=== PATIENT | male | born 1965 | race Caucasian/White ===

== ENCOUNTER 2023-04-26 10:23 | Inpatient (IN) | payer OTHER ==
[~2023-04-26] VITALS: Ht 170.2 cm; Wt 57.9 kg
[~2023-04-26 10:23] MED LIST: AMLO-258 PO; CHOL25TA4 PO; DIVA-85 PO; DOCU-385 PO; LEVE500T20 PO; PHEN100C10 PO; RANI150T7 PO; SERT-158 PO
[2023-04-26] MEDS ORDERED: 0.9% SODIUM CHLORIDE 10 ML SYRINGE IVP PRN (10:30)
[2023-04-26] MEDS ORDERED: BISA10SU11 PR (10:39)
[2023-04-26] MEDS ORDERED: NA P133E4 PR (10:39)
[2023-04-26] MEDS ORDERED: MAGN-169 PO (10:39)
[2023-04-26] MEDS ORDERED: MELA5TAB21 PO (10:39)
[2023-04-26] MEDS ORDERED: ATOR20TA PO (10:39)
[2023-04-26] MEDS ORDERED: GUAIFENESIN PO (10:39)
[2023-04-26] MEDS ORDERED: FAMO20 PO (10:39)
[2023-04-26] MEDS ORDERED: FOLI0.4T14 PO (10:39)
[2023-04-26] MEDS ORDERED: PHEN200C5 PO (10:39)
[2023-04-26] MEDS ORDERED: CALC-1009 PO (10:39)
[2023-04-26] MEDS ORDERED: VITAMIN B12 IM (10:39)
[2023-04-26] MEDS ORDERED: MIRT-89 PO (10:39)
[2023-04-26] MEDS ORDERED: LEVE250T4 PO (10:39)
[2023-04-26] MEDS ORDERED: ASPI81TA87 PO (10:39)
[2023-04-26 10:40] VITALS: PULSE 130; RESP 30; O2SAT 95
[2023-04-26] MEDS ORDERED: LevETIRAcetam 500 MG in DEXTROSE 5%-WATER 100 ML IV ONE (10:45)
[2023-04-26 11:00] LABS: BASOPHILS % (AUTO) 0.7 % (0.0-2.0); EOSINOPHILS % (AUTO) 0.1 % (1.0-6.0); HEMATOCRIT 43.8 % (41-53); HEMOGLOBIN 14.5 g/dL (13.5-17.5); LYMPHOCYTES # (AUTO) 1.4 K/uL (1.0-4.8); LYMPHOCYTES % (AUTO) 11.6 % (22.0-44.0); MEAN CORPUSCULAR HEMOGLOBIN 30.5 pg (26.0-34.0); MEAN CORPUSCULAR HGB CONC 33.1 G/dL (31.0-37.0); MEAN CORPUSCULAR VOLUME 92 fL (80-100); MONOCYTES % (AUTO) 7.9 % (2.0-9.0); NEUTROPHILS # (AUTO) 9.8 K/uL (1.8-7.7); NEUTROPHILS % (AUTO) 79.7 % (40.0-70.0); PLATELET COUNT (AUTO) 299 K/uL (150-450); RED BLOOD CELL COUNT(AUTO) 4.76 MIL/uL (4.50-5.90); RED CELL DISTRIBUTION WIDTH 13.2 % (11.5-14.5); WHITE BLOOD COUNT (AUTO) 12.3 K/uL (4.5-11.0)
[2023-04-26 11:00] LABS: COVID AG,FIA SOURCE NASAL SWAB
[2023-04-26 11:07] LABS: APPEARANCE,URINE CLEAR (CLEAR); BILIRUBIN,URINE NEGATIVE (NEGATIVE); COLOR,URINE LIGHT YELLOW (YELLOW); GLUCOSE, URINE (UA) 70-100 mg/dL (NEGATIVE); LEUKOCYTE ESTERASE ,URINE NEGATIVE (NEGATIVE); NITRATE,URINE NEGATIVE (NEGATIVE); OCCULT BLOOD,URINE SMALL (NEGATIVE); PH,URINE 5.5 (5.0-8.0); PROTEIN,URINE 100-200,SEE CONFIRM mg/dL (NEGATIVE); SPECIFIC GRAVITIY, URINE 1.018 (1.003-1.030); UROBILINOGEN,URINE <=1.0 mg/dL (<=1.0)
[2023-04-26 11:09] LABS: ANION GAP 26 mmol/L (8-16); CALCIUM, TOTAL 8.7 mg/dL (8.8-10.5); CARBON DIOXIDE 13 mmol/L (22-29); CHLORIDE 89 mmol/L (98-107); CREATININE 1.71 mg/dL (0.60-1.30); GLOMERULAR FILTR. RATE CALC 41 mL/min (>60); GLUCOSE,RANDOM 244 mg/dL (70-110); POTASSIUM 3.1 mmol/L (3.5-5.1); SODIUM SERUM 128 mmol/L (136-145); UREA NITROGEN, BLOOD 18 mg/dL (7-18)
[2023-04-26 11:15] LABS: INR 1.1 (0.9-1.1); PROTHROMBIN TIME 11.3 SEC (9.4-11.6)
[2023-04-26 11:20] LABS: TROPONIN I-HIGH SENSITIVITY 34 ng/L (<76)
[2023-04-26 11:22] LABS: LACTIC ACID 14.2 mmol/L (0.4-2.0)
[2023-04-26 11:24] LABS: SARS-COV2 (COVID) ANTIGEN,FIA Negative (Negative)
[2023-04-26 11:25] LABS: SULFOSALICYLIC ACID,URINE 2+ (Negative)
[2023-04-26 11:25] LABS: INFLUENZA TYPE A NEGATIVE FOR TYPE A (NEGATIVE); INFLUENZA TYPE B NEGATIVE FOR TYPE B (NEGATIVE)
[2023-04-26 11:26] LABS: BACTERIA,URINE None Seen /HPF (None Seen); HYALINE CASTS, URINE 0-2 /LPF (None Seen); WBC,URINE None Seen /HPF (0-5)
[2023-04-26 11:27] LABS: ALBUMIN 3.7 g/dL (3.4-5.0); ALKALINE PHOSPHATASE 150 U/L (46-116); BILIRUBIN,TOTAL 0.3 mg/dL (0.1-1.0); TOTAL PROTEIN, SERUM 7.9 g/dL (6.4-8.2)
[2023-04-26] MEDS ORDERED: PIPERACILLIN/TAZO 3.375 GM/D5W 50 ML IV ONE (11:30)
[2023-04-26] MEDS ORDERED: SODIUM CHLORIDE 0.9% 1,900 ML IV ONE (11:30)
[2023-04-26] MEDS ORDERED: ACETAMINOPHEN 500 MG TABLET PO ONE (12:15)
[2023-04-26 12:21] LABS: D-DIMER 1.82 mg/L FEU (0.00-0.50); FIBRINOGEN 276 mg/dL (200-400)
[2023-04-26] MEDS ORDERED: ONDANSETRON HCL 4 MG/2 ML VIAL IVP PRN (12:30)
[2023-04-26] MEDS ORDERED: SODIUM CHLORIDE 0.9% 1,000 ML IV ONE (12:30)
[2023-04-26] MEDS ORDERED: ACETAMINOPHEN 325 MG TABLET PO PRN (12:30)
[2023-04-26] MEDS ORDERED: LORazepam 2 MG/ML VIAL IVP PRN (12:30)
[2023-04-26] MEDS ORDERED: BISACODYL 10 MG RECTAL RECTAL SUPPOSITORY PR PRN (12:30)
[2023-04-26] MEDS ORDERED: DEXTROSE 50%-WATER 25 GM/50 ML SYRINGE IVP PRN (12:30)
[2023-04-26 12:36] LABS: ASPARTATE AMINOTRANSFERASE 30 U/L (15-37)
[2023-04-26 12:48] LABS: ALANINE AMINOTRANSFERASE 15 U/L (12-78)
[2023-04-26 12:57] LABS: PHENYTOIN (DILANTIN) 4.9 mcg/mL (10.0-20.0)
[2023-04-26] MEDS ORDERED: VANCOMYCIN HCL 1.25 GM in DEXTROSE 5%-WATER 250 ML IV ONE (13:00)
[2023-04-26 13:08] LABS: FIBRIN SPLIT PRODUCTS GT >10 but LT <40 mcg/mL (<10)
[2023-04-26] MEDS ORDERED: LORazepam 2 MG/ML VIAL IVP ONE (13:30)
[2023-04-26] MEDS: HEPARIN SODIUM,PORCINE 5,000 UNITS/ML VIAL SQ SCH ×2 (15:57→23:05)
[2023-04-26] MEDS: PIPERACILLIN/TAZO 3.375 GM/D5W 50 ML IV SCH ×2 (17:24→23:40)
[2023-04-26 21:10] VITALS: BP 116/87; PULSE 91; RESP 20; TEMP 98.1
[2023-04-26] MEDS: LevETIRAcetam 750 MG in DEXTROSE 5%-WATER 100 ML IV SCH (23:04)
[2023-04-26] MEDS ORDERED: SODIUM CHLORIDE 0.9% 500 ML IV ONE (23:05)
[2023-04-26 23:23] VITALS: BP 118/81; PULSE 86; RESP 18; TEMP 99
[2023-04-27] MEDS ORDERED: POTASSIUM CHL 10 MEQ/WATER 50 ML IV PRN (01:15)
[2023-04-27 01:16] LABS: GLUCOMETER DEV NAME(LOC) 5N.1C; GLUCOSE,POINT OF CARE 88 MG/DL (70-110)
[2023-04-27] MEDS: POTASSIUM CHLORIDE 20 MEQ ER TABLET PO PRN (01:18)
[2023-04-27 05:05] VITALS: BP 101/78; PULSE 87; RESP 19; TEMP 98
[2023-04-27] MEDS: PIPERACILLIN/TAZO 3.375 GM/D5W 50 ML IV SCH ×4 (05:31→23:33)
[2023-04-27] MEDS ORDERED: VANCOMYCIN HCL 1.25 GM in DEXTROSE 5%-WATER 250 ML IV SCH (08:00)
[2023-04-27 08:29] LABS: ANION GAP 9 mmol/L (8-16); CALCIUM, TOTAL 7.8 mg/dL (8.8-10.5); CARBON DIOXIDE 26 mmol/L (22-29); CHLORIDE 98 mmol/L (98-107); CREATININE 0.84 mg/dL (0.60-1.30); GLOMERULAR FILTR. RATE CALC > 60 mL/min (>60); GLUCOSE,RANDOM 80 mg/dL (70-110); POTASSIUM 4.4 mmol/L (3.5-5.1); SODIUM SERUM 133 mmol/L (136-145); UREA NITROGEN, BLOOD 11 mg/dL (7-18)
[2023-04-27 08:51] LABS: GLUCOMETER DEV NAME(LOC) 5N.2C; GLUCOSE,POINT OF CARE 87 MG/DL (70-110)
[2023-04-27 09:20] VITALS: BP 104/77; PULSE 89; RESP 20; TEMP 98.3
[2023-04-27] MEDS: PANTOPRAZOLE SODIUM 40 MG/VIAL IVP SCH (09:43)
[2023-04-27] MEDS: HEPARIN SODIUM,PORCINE 5,000 UNITS/ML VIAL SQ SCH ×3 (09:43→23:33)
[2023-04-27] MEDS: LevETIRAcetam 750 MG in DEXTROSE 5%-WATER 100 ML IV SCH ×2 (11:26→23:19)
[2023-04-27 12:59] VITALS: BP 119/81; PULSE 88; RESP 20; TEMP 98.6
[2023-04-27] MEDS ORDERED: DEXAMETHASONE 4 MG TABLET PO SCH (15:00)
[2023-04-27] MEDS ORDERED: REMDESIVIR 200 MG in SODIUM CHLORIDE 0.9% 250 ML IV ONE (15:00)
[2023-04-27 16:46] VITALS: BP 103/69; PULSE 79; RESP 20; TEMP 98.6
[2023-04-27] MEDS: VANCOMYCIN 1GM/WATER(PEG/NADA) 200 ML IV SCH (19:48)
[2023-04-27 20:08] VITALS: BP 110/74; PULSE 110; RESP 16; TEMP 99
[2023-04-27 20:21] LABS: GLUCOMETER DEV NAME(LOC) 5S.2C; GLUCOSE,POINT OF CARE 118 MG/DL (70-110)
[2023-04-27 20:21] LABS: GLUCOMETER DEV NAME(LOC) 5S.2C; GLUCOSE,POINT OF CARE 125 MG/DL (70-110)
[2023-04-27 23:42] VITALS: BP 105/73; PULSE 86; RESP 18; TEMP 98.7
[2023-04-27 23:51] LABS: GLUCOMETER DEV NAME(LOC) 5N.1C; GLUCOSE,POINT OF CARE 96 MG/DL (70-110)
[2023-04-28 04:00] VITALS: BP 109/72; PULSE 86; RESP 18; TEMP 98.5
[2023-04-28] MEDS: PIPERACILLIN/TAZO 3.375 GM/D5W 50 ML IV SCH ×3 (05:27→17:04)
[2023-04-28 07:01] LABS: ALANINE AMINOTRANSFERASE 12 U/L (12-78); ALKALINE PHOSPHATASE 109 U/L (46-116); ANION GAP 7 mmol/L (8-16); ASPARTATE AMINOTRANSFERASE 18 U/L (15-37); BILIRUBIN,TOTAL 0.3 mg/dL (0.1-1.0); CALCIUM, TOTAL 8.5 mg/dL (8.8-10.5); CARBON DIOXIDE 25 mmol/L (22-29); CHLORIDE 102 mmol/L (98-107); CREATININE 0.73 mg/dL (0.60-1.30); FERRITIN 126 ng/mL (26-388); GLOMERULAR FILTR. RATE CALC > 60 mL/min (>60); GLUCOSE,RANDOM 91 mg/dL (70-110); POTASSIUM 3.2 mmol/L (3.5-5.1); SODIUM SERUM 134 mmol/L (136-145); TOTAL PROTEIN, SERUM 6.3 g/dL (6.4-8.2); UREA NITROGEN, BLOOD 7 mg/dL (7-18)
[2023-04-28 07:35] VITALS: BP 94/55; PULSE 81; RESP 20; TEMP 97.4
[2023-04-28] MEDS: PANTOPRAZOLE SODIUM 40 MG/VIAL IVP SCH (09:17)
[2023-04-28] MEDS: HEPARIN SODIUM,PORCINE 5,000 UNITS/ML VIAL SQ SCH ×2 (09:17→16:33)
[2023-04-28] MEDS: VANCOMYCIN 1GM/WATER(PEG/NADA) 200 ML IV SCH ×3 (09:17→20:30)
[2023-04-28] MEDS: POTASSIUM CHLORIDE 20 MEQ ER TABLET PO PRN (09:19)
[2023-04-28] MEDS: DEXAMETHASONE 2 MG TABLET PO SCH (09:19)
[2023-04-28] MEDS: LevETIRAcetam 750 MG in DEXTROSE 5%-WATER 100 ML IV SCH (11:22)
[2023-04-28 11:44] VITALS: BP 103/69; PULSE 77; RESP 18; TEMP 98.7
[2023-04-28] MEDS ORDERED: CYAN-11 IM (11:48)
[2023-04-28] MEDS ORDERED: PHEN100C10 PO (11:48)
[2023-04-28] MEDS ORDERED: GUAI100S13 PO (11:48)
[2023-04-28] MEDS: PHENYTOIN 100 MG/4 ML SUSPENSION UDCUP PO SCH ×2 (12:06→20:30)
[2023-04-28 12:26] LABS: GLUCOMETER DEV NAME(LOC) 5N.2C; GLUCOSE,POINT OF CARE 130 MG/DL (70-110)
[2023-04-28 12:26] LABS: GLUCOMETER DEV NAME(LOC) 5N.2C; GLUCOSE,POINT OF CARE 92 MG/DL (70-110)
[2023-04-28] MEDS: REMDESIVIR 100 MG in SODIUM CHLORIDE 0.9% 250 ML IV SCH (15:09)
[2023-04-28 15:20] VITALS: BP 98/64; PULSE 68; RESP 18; TEMP 98.6
[2023-04-28 20:47] VITALS: BP 120/71; PULSE 80; RESP 16; TEMP 98.4
[2023-04-28 21:11] LABS: GLUCOMETER DEV NAME(LOC) 5S.2C; GLUCOSE,POINT OF CARE 143 MG/DL (70-110)
[2023-04-28 21:11] LABS: GLUCOMETER DEV NAME(LOC) 5S.2C; GLUCOSE,POINT OF CARE 157 MG/DL (70-110)
[2023-04-29] MEDS: LevETIRAcetam 750 MG in DEXTROSE 5%-WATER 100 ML IV SCH ×2 (00:24→11:16)
[2023-04-29] MEDS: PIPERACILLIN/TAZO 3.375 GM/D5W 50 ML IV SCH ×4 (00:24→17:11)
[2023-04-29] MEDS: HEPARIN SODIUM,PORCINE 5,000 UNITS/ML VIAL SQ SCH ×3 (00:25→15:05)
[2023-04-29] MEDS ORDERED: SODIUM CHLORIDE 0.9% 500 ML IV ONE (01:01)
[2023-04-29 01:14] VITALS: BP 118/81; PULSE 84; RESP 18; TEMP 98.5
[2023-04-29 05:19] VITALS: BP 103/86; PULSE 70; RESP 20; TEMP 98.1
[2023-04-29] MEDS: PHENYTOIN 100 MG/4 ML SUSPENSION UDCUP PO SCH ×2 (08:10→21:25)
[2023-04-29] MEDS: DEXAMETHASONE 2 MG TABLET PO SCH (08:10)
[2023-04-29] MEDS: VANCOMYCIN 1GM/WATER(PEG/NADA) 200 ML IV SCH ×2 (08:10→21:24)
[2023-04-29] MEDS: PANTOPRAZOLE SODIUM 40 MG/VIAL IVP SCH (08:10)
[2023-04-29 08:25] VITALS: BP 106/71; PULSE 69; RESP 18; TEMP 97.7
[2023-04-29 10:10] LABS: ALANINE AMINOTRANSFERASE 11 U/L (12-78); ALBUMIN 2.7 g/dL (3.4-5.0); ALKALINE PHOSPHATASE 97 U/L (46-116); ANION GAP 7 mmol/L (8-16); ASPARTATE AMINOTRANSFERASE 14 U/L (15-37); BILIRUBIN,TOTAL 0.2 mg/dL (0.1-1.0); CALCIUM, TOTAL 8.2 mg/dL (8.8-10.5); CARBON DIOXIDE 25 mmol/L (22-29); CHLORIDE 105 mmol/L (98-107); CREATININE 0.75 mg/dL (0.60-1.30); GLOMERULAR FILTR. RATE CALC > 60 mL/min (>60); GLUCOSE,RANDOM 111 mg/dL (70-110); POTASSIUM 3.2 mmol/L (3.5-5.1); SODIUM SERUM 137 mmol/L (136-145); TOTAL PROTEIN, SERUM 5.9 g/dL (6.4-8.2); UREA NITROGEN, BLOOD 3 mg/dL (7-18); VANCOMYCIN,RANDOM 32.4 mcg/mL (25.0-50.0)
[2023-04-29] MEDS: POTASSIUM CHLORIDE 20 MEQ ER TABLET PO PRN (11:14)
[2023-04-29 11:51] LABS: GLUCOMETER DEV NAME(LOC) 5N.2C; GLUCOSE,POINT OF CARE 109 MG/DL (70-110)
[2023-04-29 13:41] VITALS: BP 98/60; PULSE 76; RESP 18; TEMP 98.4
[2023-04-29] MEDS: REMDESIVIR 100 MG in SODIUM CHLORIDE 0.9% 250 ML IV SCH (15:05)
[2023-04-29 20:01] LABS: GLUCOMETER DEV NAME(LOC) 5S.1B; GLUCOSE,POINT OF CARE 121 MG/DL (70-110)
[2023-04-29 20:01] LABS: GLUCOMETER DEV NAME(LOC) 5S.2C; GLUCOSE,POINT OF CARE 124 MG/DL (70-110)
[2023-04-29 21:15] VITALS: BP 106/69; PULSE 77; RESP 19; TEMP 98.7
[2023-04-30] VITALS (7 sets, daily range): BP systolic 77–112; BP diastolic 50–75; PULSE 57–71; RESP 18–19; TEMP 97.9–98.2
[2023-04-30] MEDS: LevETIRAcetam 750 MG in DEXTROSE 5%-WATER 100 ML IV SCH ×3 (00:03→22:56)
[2023-04-30] MEDS: HEPARIN SODIUM,PORCINE 5,000 UNITS/ML VIAL SQ SCH ×4 (00:04→23:45)
[2023-04-30] MEDS: PIPERACILLIN/TAZO 3.375 GM/D5W 50 ML IV SCH ×5 (00:07→23:45)
[2023-04-30 07:58] LABS: ALANINE AMINOTRANSFERASE 13 U/L (12-78); ALKALINE PHOSPHATASE 104 U/L (46-116); ANION GAP 7 mmol/L (8-16); ASPARTATE AMINOTRANSFERASE 16 U/L (15-37); BILIRUBIN,TOTAL 0.2 mg/dL (0.1-1.0); CALCIUM, TOTAL 8.6 mg/dL (8.8-10.5); CARBON DIOXIDE 27 mmol/L (22-29); CHLORIDE 106 mmol/L (98-107); CREATININE 0.69 mg/dL (0.60-1.30); GLOMERULAR FILTR. RATE CALC > 60 mL/min (>60); GLUCOSE,RANDOM 79 mg/dL (70-110); POTASSIUM 4.7 mmol/L (3.5-5.1); SODIUM SERUM 140 mmol/L (136-145); TOTAL PROTEIN, SERUM 6.5 g/dL (6.4-8.2); UREA NITROGEN, BLOOD 4 mg/dL (7-18)
[2023-04-30] MEDS ORDERED: SODIUM CHLORIDE 0.9% 1,000 ML IV ONE (08:00)
[2023-04-30] MEDS: DEXAMETHASONE 2 MG TABLET PO SCH (08:04)
[2023-04-30] MEDS: VANCOMYCIN 1GM/WATER(PEG/NADA) 200 ML IV SCH (08:04)
[2023-04-30] MEDS: PHENYTOIN 100 MG/4 ML SUSPENSION UDCUP PO SCH ×2 (08:04→20:02)
[2023-04-30] MEDS: PANTOPRAZOLE SODIUM 40 MG/VIAL IVP SCH (08:05)
[2023-04-30 08:31] LABS: GLUCOMETER DEV NAME(LOC) 5N.1C; GLUCOSE,POINT OF CARE 121 MG/DL (70-110)
[2023-04-30 08:31] LABS: GLUCOMETER DEV NAME(LOC) 5N.2C; GLUCOSE,POINT OF CARE 85 MG/DL (70-110)
[2023-04-30 10:20] LABS: HEMOGLOBIN 10.9 g/dL (13.5-17.5); LYMPHOCYTES # (AUTO) 2.8 K/uL (1.0-4.8); MEAN CORPUSCULAR HGB CONC 32.2 G/dL (31.0-37.0); MEAN CORPUSCULAR VOLUME 93 fL (80-100); MONOCYTES # (AUTO) 0.8 K/uL (0.1-1.0); MONOCYTES % (AUTO) 8.2 % (2.0-9.0); NEUTROPHILS # (AUTO) 5.4 K/uL (1.8-7.7); NEUTROPHILS % (AUTO) 57.8 % (40.0-70.0); PLATELET COUNT (AUTO) 247 K/uL (150-450); RED BLOOD CELL COUNT(AUTO) 3.65 MIL/uL (4.50-5.90); RED CELL DISTRIBUTION WIDTH 13.5 % (11.5-14.5); WHITE BLOOD COUNT (AUTO) 9.3 K/uL (4.5-11.0)
[2023-04-30] MEDS: REMDESIVIR 100 MG in SODIUM CHLORIDE 0.9% 250 ML IV SCH (15:24)
[2023-04-30] MEDS: VANCOMYCIN HCL 750 MG in DEXTROSE 5%-WATER 250 ML IV SCH (16:48)
[2023-04-30] MEDS: INSULIN LISPRO 100 UNITS/ML SQ PRN (20:08)
[2023-04-30 20:16] LABS: GLUCOMETER DEV NAME(LOC) 5S.2C; GLUCOSE,POINT OF CARE 113 MG/DL (70-110)
[2023-04-30 20:16] LABS: GLUCOMETER DEV NAME(LOC) 5N.2C; GLUCOSE,POINT OF CARE 115 MG/DL (70-110)
[2023-04-30 21:27] LABS: GLUCOMETER DEV NAME(LOC) 5N.1C; GLUCOSE,POINT OF CARE 142 MG/DL (70-110)
[2023-05-01] VITALS (7 sets, daily range): BP systolic 86–130; BP diastolic 56–91; PULSE 62–76; RESP 18–20; TEMP 97.2–98.4
[2023-05-01] MEDS: VANCOMYCIN HCL 750 MG in DEXTROSE 5%-WATER 250 ML IV SCH ×3 (00:31→16:39)
[2023-05-01] MEDS: PIPERACILLIN/TAZO 3.375 GM/D5W 50 ML IV SCH ×4 (05:04→23:41)
[2023-05-01 07:11] LABS: ALBUMIN 2.9 g/dL (3.4-5.0); ANION GAP 17 mmol/L (8-16); CALCIUM, TOTAL 8.9 mg/dL (8.8-10.5); CARBON DIOXIDE 26 mmol/L (22-29); CHLORIDE 103 mmol/L (98-107); CREATININE 0.72 mg/dL (0.60-1.30); GLOMERULAR FILTR. RATE CALC > 60 mL/min (>60); GLUCOSE,RANDOM 92 mg/dL (70-110); PHENYTOIN (DILANTIN) 13.6 mcg/mL (10.0-20.0); POTASSIUM 4.7 mmol/L (3.5-5.1); SODIUM SERUM 146 mmol/L (136-145); UREA NITROGEN, BLOOD 5 mg/dL (7-18)
[2023-05-01 07:25] LABS: ALANINE AMINOTRANSFERASE 18 U/L (12-78); ALKALINE PHOSPHATASE 100 U/L (46-116); ASPARTATE AMINOTRANSFERASE 21 U/L (15-37); BILIRUBIN,TOTAL 0.1 mg/dL (0.1-1.0); TOTAL PROTEIN, SERUM 6.5 g/dL (6.4-8.2)
[2023-05-01 07:36] LABS: GLUCOMETER DEV NAME(LOC) 5N.2C; GLUCOSE,POINT OF CARE 93 MG/DL (70-110)
[2023-05-01] MEDS: HEPARIN SODIUM,PORCINE 5,000 UNITS/ML VIAL SQ SCH ×3 (09:01→23:17)
[2023-05-01] MEDS: PANTOPRAZOLE SODIUM 40 MG/VIAL IVP SCH (09:01)
[2023-05-01] MEDS: PHENYTOIN 100 MG/4 ML SUSPENSION UDCUP PO SCH ×2 (09:04→20:44)
[2023-05-01] MEDS: DEXAMETHASONE 2 MG TABLET PO SCH (09:04)
[2023-05-01] MEDS: LevETIRAcetam 750 MG in DEXTROSE 5%-WATER 100 ML IV SCH ×2 (11:26→23:11)
[2023-05-01] MEDS: INSULIN LISPRO 100 UNITS/ML SQ PRN ×2 (12:01→18:20)
[2023-05-01] MEDS: REMDESIVIR 100 MG in SODIUM CHLORIDE 0.9% 250 ML IV SCH (15:07)
[2023-05-01 15:41] LABS: GLUCOMETER DEV NAME(LOC) 5S.2C; GLUCOSE,POINT OF CARE 142 MG/DL (70-110)
[2023-05-02] VITALS (7 sets, daily range): BP systolic 93–110; BP diastolic 57–76; PULSE 59–76; RESP 16–20; TEMP 97.6–98.5
[2023-05-02] MEDS: VANCOMYCIN HCL 750 MG in DEXTROSE 5%-WATER 250 ML IV SCH (00:19)
[2023-05-02] MEDS: PIPERACILLIN/TAZO 3.375 GM/D5W 50 ML IV SCH ×3 (05:51→17:49)
[2023-05-02 06:26] LABS: GLUCOMETER DEV NAME(LOC) 5S.1B; GLUCOSE,POINT OF CARE 125 MG/DL (70-110)
[2023-05-02 07:23] LABS: ANION GAP 9 mmol/L (8-16); CARBON DIOXIDE 27 mmol/L (22-29); CHLORIDE 104 mmol/L (98-107); CREATININE 0.69 mg/dL (0.60-1.30); GLOMERULAR FILTR. RATE CALC > 60 mL/min (>60); GLUCOSE,RANDOM 70 mg/dL (70-110); POTASSIUM 4.2 mmol/L (3.5-5.1); SODIUM SERUM 140 mmol/L (136-145); UREA NITROGEN, BLOOD 6 mg/dL (7-18); VANCOMYCIN,RANDOM 30.7 mcg/mL (25.0-50.0)
[2023-05-02] MEDS: PANTOPRAZOLE SODIUM 40 MG/VIAL IVP SCH (08:09)
[2023-05-02] MEDS: DEXAMETHASONE 2 MG TABLET PO SCH (08:09)
[2023-05-02] MEDS: PHENYTOIN 100 MG/4 ML SUSPENSION UDCUP PO SCH ×2 (08:09→20:07)
[2023-05-02] MEDS: HEPARIN SODIUM,PORCINE 5,000 UNITS/ML VIAL SQ SCH ×2 (08:09→16:50)
[2023-05-02] MEDS: LevETIRAcetam 750 MG in DEXTROSE 5%-WATER 100 ML IV SCH ×2 (11:33→23:11)
[2023-05-02] MEDS ORDERED: VANCOMYCIN HCL 500 MG in DEXTROSE 5%-WATER 100 ML IV SCH (16:00)
[2023-05-02 17:26] LABS: GLUCOMETER DEV NAME(LOC) 5N.2C; GLUCOSE,POINT OF CARE 88 MG/DL (70-110)
[2023-05-02 17:26] LABS: GLUCOMETER DEV NAME(LOC) 5N.2C; GLUCOSE,POINT OF CARE 130 MG/DL (70-110)
[2023-05-02 21:51] LABS: GLUCOMETER DEV NAME(LOC) 5N.1C; GLUCOSE,POINT OF CARE 116 MG/DL (70-110)
[2023-05-02 21:51] LABS: GLUCOMETER DEV NAME(LOC) 5S.1B; GLUCOSE,POINT OF CARE 123 MG/DL (70-110)
[2023-05-03] MEDS: PIPERACILLIN/TAZO 3.375 GM/D5W 50 ML IV SCH ×4 (00:06→18:47)
[2023-05-03] MEDS: HEPARIN SODIUM,PORCINE 5,000 UNITS/ML VIAL SQ SCH ×3 (00:07→17:44)
[2023-05-03 00:19] VITALS: BP 107/74; PULSE 68; RESP 16; TEMP 97.8
[2023-05-03 05:19] VITALS: BP 106/59; PULSE 63; RESP 18; TEMP 97.9
[2023-05-03 06:07] LABS: GLUCOMETER DEV NAME(LOC) 5N.2C; GLUCOSE,POINT OF CARE 87 MG/DL (70-110)
[2023-05-03 06:58] LABS: ANION GAP 7 mmol/L (8-16); CALCIUM, TOTAL 9.5 mg/dL (8.8-10.5); CARBON DIOXIDE 30 mmol/L (22-29); CHLORIDE 103 mmol/L (98-107); CREATININE 0.87 mg/dL (0.60-1.30); GLOMERULAR FILTR. RATE CALC > 60 mL/min (>60); GLUCOSE,RANDOM 82 mg/dL (70-110); POTASSIUM 5.7 mmol/L (3.5-5.1); SODIUM SERUM 139 mmol/L (136-145); UREA NITROGEN, BLOOD 9 mg/dL (7-18)
[2023-05-03 08:32] VITALS: BP 120/70; PULSE 59; RESP 18; TEMP 98
[2023-05-03] MEDS: PHENYTOIN 100 MG/4 ML SUSPENSION UDCUP PO SCH (08:41)
[2023-05-03] MEDS: PANTOPRAZOLE SODIUM 40 MG/VIAL IVP SCH (08:41)
[2023-05-03] MEDS: LevETIRAcetam 750 MG in DEXTROSE 5%-WATER 100 ML IV SCH (11:29)
[2023-05-03 11:36] LABS: GLUCOMETER DEV NAME(LOC) 5S.2C; GLUCOSE,POINT OF CARE 157 MG/DL (70-110)
[2023-05-03 12:00] VITALS: BP 118/68; PULSE 60; RESP 18; TEMP 98
[2023-05-03] MEDS ORDERED: SODIUM POLYSTYRENE SULFONATE 15 GM/60 ML SUSPENSION BOTTLE PO ONE (14:15)
[2023-05-03 15:39] VITALS: BP 113/72; PULSE 76; RESP 20; TEMP 98
[2023-05-03 21:09] VITALS: BP 110/74; PULSE 64; RESP 18; TEMP 98.2
== END 2023-05-03 20:30 | DRG 720 ==
LOC: EMS 10:43 → 5S 19:00
PROVIDERS: ADMIT Internal Medicine; ATTEND Internal Medicine
PROC: 5A0935A Assistance with Respiratory Ventilation, Less than 24 Consecutive Hours, High Flow/Velocity Cannula (ICD-10-PCS; principal; 2023-04-26)
PROC: XW033E5 Introduction of Remdesivir Anti-infective into Peripheral Vein, Percutaneous Approach, New Technology Group 5 (ICD-10-PCS; 2023-04-27)
DX: A41.9 Sepsis, unspecified organism (principal); J96.91 Respiratory failure, unspecified with hypoxia; J12.82 Pneumonia due to coronavirus disease 2019; J69.0 Pneumonitis due to inhalation of food and vomit; G92.9 Unspecified toxic encephalopathy; U07.1 COVID-19; N17.9 Acute kidney failure, unspecified; R53.2 Functional quadriplegia; I95.9 Hypotension, unspecified; E87.1 Hypo-osmolality and hyponatremia; E11.9 Type 2 diabetes mellitus without complications; G40.909 Epilepsy, unspecified, not intractable, without status epilepticus; F01.50 Vascular dementia, unspecified severity, without behavioral disturbance, psychotic disturbance, mood disturbance, and anxiety; I10 Essential (primary) hypertension; F32.A Depression, unspecified; K21.9 Gastro-esophageal reflux disease without esophagitis; J98.11 Atelectasis; E87.5 Hyperkalemia; Z79.4 Long term (current) use of insulin; I69.351 Hemiplegia and hemiparesis following cerebral infarction affecting right dominant side; Z79.82 Long term (current) use of aspirin; Z79.899 Other long term (current) drug therapy
CPT/HCPCS: 70450; 71045; 71250; 80048; 80053; 80185; 80202; 81001; 81002; 82728; 82962; 83605; 84132; 84145; 84484; 85025; 85362; 85379; 85384; 85610; 86140; 87040; 87081; 87804; 92523; 92610; 93005; 93970; 99285; C9113; J0712; J1644; J2060; J2543; J3370; J7030; J7040; J7050; J7060; J8540; Q9967; 36415-L1; 36415-TC

== ENCOUNTER 2024-05-06 18:34 | Emergency (ER) | payer OTHER ==
[~2024-05-06] VITALS: Ht 182.9 cm; Wt 70.5 kg
[~2024-05-06 18:34] MED LIST changes: -AMLO-258 PO; +ASPI81TA87 PO; +ATOR20TA PO; +BISA10SU11 PR; +CALC-1009 PO; -CHOL25TA4 PO; +CYAN-11 IM; -DIVA-85 PO; -DOCU-385 PO; +FAMO20 PO; +FOLI0.4T14 PO; +GUAI100S13 PO; +LEVE250T81 PO; -LEVE500T20 PO; +MAGN-169 PO; +MELA5TAB21 PO; +MIRT-89 PO; +NA P133E4 PR; -RANI150T7 PO; -SERT-158 PO
[2024-05-06 19:19] VITALS: TEMP 98.4
[2024-05-06] MEDS ORDERED: LIPOFLAVONOID PO (19:32)
[2024-05-06] MEDS ORDERED: EZET10TA57 PO (19:32)
[2024-05-06] MEDS ORDERED: MULT-1303 PO (19:32)
[2024-05-06] MEDS ORDERED: DONE-52 PO (19:32)
[2024-05-06] MEDS ORDERED: ACET-2247 PO (19:32)
[2024-05-06] MEDS ORDERED: ONDA-104 PO (19:32)
[2024-05-06] MEDS ORDERED: NITR0.4T52 SL (19:32)
[2024-05-06] MEDS ORDERED: [UNRECOGNIZED DRUG - CODE] PO (19:32)
[2024-05-06] MEDS ORDERED: DIVA-112 PO (19:32)
[2024-05-06 20:21] LABS: ANION GAP 12 mmol/L (8-16); BASOPHILS % (AUTO) 0.4 % (0.0-2.0); CALCIUM, TOTAL 8.7 mg/dL (8.8-10.5); CARBON DIOXIDE 26 mmol/L (22-29); CHLORIDE 102 mmol/L (98-107); EOSINOPHILS % (AUTO) 1.8 % (1.0-6.0); GLOMERULAR FILTR. RATE CALC > 60 mL/min (>60); GLUCOSE,RANDOM 106 mg/dL (70-110); HEMATOCRIT 37.8 % (41-53); HEMOGLOBIN 12.6 g/dL (13.5-17.5); LYMPHOCYTES # (AUTO) 1.2 K/uL (1.0-4.8); LYMPHOCYTES % (AUTO) 10.7 % (22.0-44.0); MEAN CORPUSCULAR HEMOGLOBIN 30.6 pg (26.0-34.0); MEAN CORPUSCULAR HGB CONC 33.2 G/dL (31.0-37.0); MEAN CORPUSCULAR VOLUME 92 fL (80-100); MONOCYTES # (AUTO) 0.8 K/uL (0.1-1.0); MONOCYTES % (AUTO) 7.4 % (2.0-9.0); NEUTROPHILS # (AUTO) 9.2 K/uL (1.8-7.7); NEUTROPHILS % (AUTO) 79.7 % (40.0-70.0); PLATELET COUNT (AUTO) 297 K/uL (150-450); POTASSIUM 3.9 mmol/L (3.5-5.1); RED BLOOD CELL COUNT(AUTO) 4.11 MIL/uL (4.50-5.90); RED CELL DISTRIBUTION WIDTH 13.3 % (11.5-14.5); SODIUM SERUM 140 mmol/L (136-145); UREA NITROGEN, BLOOD 5 mg/dL (7-18); WHITE BLOOD COUNT (AUTO) 11.5 K/uL (4.5-11.0)
[2024-05-06 20:27] LABS: PHENYTOIN (DILANTIN) 12.7 mcg/mL (10.0-20.0); VALPROIC ACID 29 mcg/mL (50-100)
[2024-05-06] MEDS: LevETIRAcetam 500 MG TABLET PO ONE (22:05)
[2024-05-06] MEDS: LIDOCAINE 2% VISCOUS 15 ML SOLUTION UDCUP TP ONE (22:05)
[2024-05-06] MEDS: MELATONIN 5 MG TABLET PO ONE (22:44)
[2024-05-06 22:46] LABS: APPEARANCE,URINE CLEAR (CLEAR); BILIRUBIN,URINE NEGATIVE (NEGATIVE); COLOR,URINE YELLOW (YELLOW); GLUCOSE, URINE (UA) NEGATIVE (NEGATIVE); KETONES,URINE TRACE mg/dL (NEGATIVE); LEUKOCYTE ESTERASE ,URINE NEGATIVE (NEGATIVE); NITRATE,URINE NEGATIVE (NEGATIVE); OCCULT BLOOD,URINE NEGATIVE (NEGATIVE); PROTEIN,URINE TRACE mg/dL (NEGATIVE); SPECIFIC GRAVITIY, URINE 1.014 (1.003-1.030); UROBILINOGEN,URINE <=1.0 mg/dL (<=1.0)
[2024-05-06 23:01] LABS: BACTERIA,URINE Rare /HPF (None Seen); RBC,URINE 0-2 /HPF (0-2); WBC,URINE 0-2 /HPF (0-5)
[2024-05-06 23:20] VITALS: BP 109/76; PULSE 91; RESP 20; O2SAT 93
== END 2024-05-07 00:30 | disposition home or self-care (01) ==
LOC: EMS 18:34
DX: G40.909 Epilepsy, unspecified, not intractable, without status epilepticus (principal); R53.1 Weakness; K21.9 Gastro-esophageal reflux disease without esophagitis; I10 Essential (primary) hypertension
CPT/HCPCS: 80048; 80164; 80185; 81001; 85025; 99284